=== PATIENT | male | born 1945 | race Caucasian/White ===

== ENCOUNTER 2020-09-05 03:51 | Emergency (ER) | payer MEDICARE, OTHER ==
[2020-09-05 04:51] LABS: BASOPHIL 0.3 % (0-2); BILIRUBIN NEGATIVE (NEGATIVE); BLOOD NEGATIVE Ery/uL (NEGATIVE); CLARITY CLEAR (CLEAR); COLOR YELLOW (YELLOW); EOSINOPHIL 1.7 % (0-7); GLUCOSE (U) NORMAL (NORMAL); HCT 35.8 % (42.0-52.0); HGB 12.2 g/dl (13.2-18.0); LEUKOCYTES NEGATIVE Leu/uL (NEGATIVE); LYMPHOCYTE 8.4 % (15-48); MCH 34.2 pg (25.0-31.0); MCHC 34.1 g/dL (32.0-36.0); MCV 100.3 fL (78.0-100.0); MPV 8.4 fL (6.0-9.5); NEUTROPHIL 83.2 % (41-80); NITRITE NEGATIVE (NEGATIVE); NRBC 0; PLT 207 K/uL (150-400); PROTEIN NEGATIVE (NEGATIVE); RBC 3.57 M/uL (4.70-6.00); RDW 12.9 % (11.5-14.0); UROBILINOGEN 0.2 mg/dL (0.2-1.0); pH 5.5 (5.0-9.0)
[2020-09-05 05:06] LABS: INR 1.08 (0.9-1.2); PROTHROMBIN TIME 13.3 SECONDS (11.4-13.6)
[2020-09-05 05:07] LABS: PTT 30.3 SECONDS (22.2-34.7)
[2020-09-05 05:10] LABS: ALBUMIN 3.6 g/dL (3.4-5.0); BILIRUBIN - TOTAL 0.4 mg/dL (0.2-1.0); BUN/CREAT RATIO (CALC) 11.9 RATIO; CREATININE 0.67 mg/dL (0.67-1.17); GLOBULIN (CALCULATION) 3.7 g/dL; POTASSIUM 3.7 mmol/L (3.5-5.1); TOTAL PROTEIN 7.3 g/dL (6.4-8.2)
== END 2020-09-05 11:45 | disposition other institution (70) ==
LOC: FER 03:51
PROVIDERS: Emergency Medicine
DX: S72.001A Fracture of unspecified part of neck of right femur, initial encounter for closed fracture (principal); S51.012A Laceration without foreign body of left elbow, initial encounter; S51.011A Laceration without foreign body of right elbow, initial encounter; F10.129 Alcohol abuse with intoxication, unspecified; J44.9 Chronic obstructive pulmonary disease, unspecified; I10 Essential (primary) hypertension; F17.210 Nicotine dependence, cigarettes, uncomplicated; Z23 Encounter for immunization; Z95.5 Presence of coronary angioplasty implant and graft; Z79.82 Long term (current) use of aspirin; Z79.899 Other long term (current) drug therapy; Z79.02 Long term (current) use of antithrombotics/antiplatelets; Y90.6 Blood alcohol level of 120-199 mg/100 ml; W01.0XXA Fall on same level from slipping, tripping and stumbling without subsequent striking against object, initial encounter; Z20.822 Contact with and (suspected) exposure to COVID-19
CPT/HCPCS: 36415; 36600; 71045; 71275; 73502; 80053; 81003; 82803; 85025; 85610; 85730; 90471; 90715; 93005; 94640; 94664; 96374; 96375; 96376; G0480; J1170; J2405; Q9967; U0002

== ENCOUNTER 2022-05-10 22:44 | Emergency (ER) | payer MEDICARE, OTHER | END 2022-05-11 08:42 | disposition home or self-care (01) | LOC: FER 22:44 | DX: S01.01XA Laceration without foreign body of scalp, initial encounter (principal); S51.011A Laceration without foreign body of right elbow, initial encounter; F10.129 Alcohol abuse with intoxication, unspecified; I10 Essential (primary) hypertension; J44.9 Chronic obstructive pulmonary disease, unspecified; F17.210 Nicotine dependence, cigarettes, uncomplicated; I25.10 Atherosclerotic heart disease of native coronary artery without angina pectoris; Z23 Encounter for immunization; Z79.02 Long term (current) use of antithrombotics/antiplatelets; Z79.899 Other long term (current) drug therapy; W01.0XXA Fall on same level from slipping, tripping and stumbling without subsequent striking against object, initial encounter; Y92.009 Unspecified place in unspecified non-institutional (private) residence as the place of occurrence of the external cause | CPT/HCPCS: 70450; 72125; 73080; 90715 ==